=== PATIENT | male | born 1955 | race Caucasian/White ===

== ENCOUNTER → 2016-09-25 | Outpatient (CLI) | payer OTHER ==
--- NOTE | 2016-09-25 11:05 | KCIC ---
Examination: Ultrasound right lower extremity venous duplex HISTORY History of pain in the posterior calf region, hematoma. COMPARISON None available. TECHNIQUE Grayscale, color Doppler 2D, spectral waveform analysis of right lower extremity venous system were performed. FINDINGS The visualized common femoral vein, superficial femoral vein, popliteal vein demonstrate normal compression and augmentation of flow. The visualized calf veins are patent. There is a noncompressibility of the smaller saphenous vein in the mid calf region at the site of bruising likely a thrombus in the superficial vein. IMPRESSION 1. No evidence of deep venous thrombosis identified in the visualized right lower extremity venous system. 2. There is noncompressibility of the short saphenous vein in the mid calf region at the site of bruising, question superficial vein thrombus. Electronically signed by: Stanford Jackson (Sep 25, 2016 11:02:40)
== END | disposition home or self-care (01) ==
LOC: KCIC US 09:32
PROVIDERS: ATTEND Nurse Practitioner Family
DX: M79.81 Nontraumatic hematoma of soft tissue (principal); M79.604 Pain in right leg
CPT/HCPCS: 93971